=== PATIENT | female | born 1960 | race Caucasian/White ===

== ENCOUNTER 2017-11-17 19:54 | Inpatient (IN) | payer BC, OTHER ==
[~2017-11-17] VITALS: Ht 154.9 cm; Wt 79.8 kg
[~2017-11-17 19:54] MED LIST: NORCO 5-325 TA1 EACH PO; ZOCOR 20 MG TAB20 M1 PO
[2017-11-17 20:22] VITALS: BP 135/75
[2017-11-17 20:24] LABS: ABSOLUTE NEUTROPHILS 6.5 thou/uL (1.4-8.2); BASOPHILS 0.8 % (0.0-2.0); EOSINOPHILS 9.5 % (0.0-3.0); HEMATOCRIT 45.3 % (37.0-47.0); HEMOGLOBIN 15.6 gm/dL (12.0-15.0); LYMPHOCYTES 22.5 % (24.0-44.0); MCHC 34.4 g/dL (28.0-37.0); PLATELET COUNT 242 thou/uL (150-400); POLYS 60.2 % (36.0-66.0); RBC 4.87 mil/uL (4.20-5.00); RDW 12.7 % (10.5-14.5); WBC 10.8 thou/uL (4.0-11.0)
[2017-11-17 20:33] LABS: CALCIUM 9.5 mg/dL (8.5-10.1); CREATININE 1.1 mg/dL (0.6-1.0); POTASSIUM 3.7 mmol/L (3.5-5.1)
[2017-11-17 20:49] LABS: ALBUMIN 4.2 g/dL (3.4-5.0); DIRECT BILIRUBIN 0.1 mg/dL (<0.1-0.3); TOTAL BILIRUBIN 0.4 mg/dL (<0.1-1.0); TOTAL PROTEIN 7.8 g/dL (6.4-8.2)
[2017-11-17 21:17] LABS: URINE BILIRUBIN NEGATIVE (Negative); URINE BLOOD NEGATIVE (Negative); URINE CLARITY CLEAR; URINE COLOR YELLOW; URINE GLUCOSE-RANDOM* NEGATIVE (Negative); URINE KETONES NEGATIVE (Negative); URINE LEUKOCYTES NEGATIVE (Negative); URINE NITRITE NEGATIVE (Negative); URINE PROTEIN (DIPSTICK) NEGATIVE (Negative); URINE UROBILINOGEN 0.2 E.U./dl (0.2-1.0)
[2017-11-17] MEDS ORDERED: PHENERGAN 25 MG25 M1 PO (21:20)
[2017-11-17] MEDS ORDERED: PEPCID40 MG PO (21:20)
[2017-11-17 22:03] VITALS: BP 135/69
[2017-11-17 23:16] VITALS: BP 126/72
[2017-11-18] MEDS ORDERED: XANAX1 MG PO (00:49)
[2017-11-18] MEDS ORDERED: XANAX 0.5 MG0.5 MG PO (00:50)
[2017-11-18] MEDS ORDERED: CYMBALTA30 MG PO (00:51)
[2017-11-18 05:52] VITALS: BP 88/49
[2017-11-18 06:30] LABS: CALCIUM 8.8 mg/dL (8.5-10.1); POTASSIUM 3.9 mmol/L (3.5-5.1)
[2017-11-18 09:50] VITALS: BP 98/47
[2017-11-18] MEDS ORDERED: FLAGYL500 MG PO (10:11)
[2017-11-18] MEDS ORDERED: CIPRO500 MG PO (10:11)
[2017-11-18] MEDS ORDERED: MIRALAX17 GM PO (10:11)
[2017-11-18 10:37] VITALS: BP 98/47
[2017-11-18 13:37] VITALS: BP 98/47
== END 2017-11-18 14:07 | disposition home or self-care (01) | DRG 392 ==
LOC: ER 19:54 → EROBS 21:25 → 4N 21:25
PROVIDERS: Emergency Medicine; Nurse Practitioner Family
DX: K58.9 Irritable bowel syndrome, unspecified (principal); F32.9 Major depressive disorder, single episode, unspecified; F17.210 Nicotine dependence, cigarettes, uncomplicated; K80.50 Calculus of bile duct without cholangitis or cholecystitis without obstruction; K59.00 Constipation, unspecified; F41.8 Other specified anxiety disorders; Z88.8 Allergy status to other drugs, medicaments and biological substances; Z90.710 Acquired absence of both cervix and uterus
CPT/HCPCS: 10790

== ENCOUNTER 2021-04-11 11:46 | Emergency (ER) | payer OTHER ==
[~2021-04-11] VITALS: Ht 157.5 cm; Wt 79.4 kg
[~2021-04-11 11:46] MED LIST changes: +CIPRO500 MG PO; +CYMBALTA30 MG PO; +FLAGYL500 MG PO; +MIRALAX17 GM PO; +PEPCID40 MG PO; +PHENERGAN 25 MG25 M1 PO; +XANAX 0.5 MG0.5 MG PO; +XANAX1 MG PO
[2021-04-11] MEDS ORDERED: LAMOTRIGINE150 MG PO (11:53)
[2021-04-11] MEDS ORDERED: BUSPIRONE HCL15 MG PO (11:53)
[2021-04-11 13:11] LABS: URINE BILIRUBIN NEGATIVE (Negative); URINE BLOOD NEGATIVE (Negative); URINE CLARITY CLEAR; URINE COLOR YELLOW; URINE GLUCOSE-RANDOM* NEGATIVE (Negative); URINE KETONES NEGATIVE (Negative); URINE LEUKOCYTES-REFLEX TRACE (Negative); URINE NITRITE-REFLEX NEGATIVE (Negative); URINE PROTEIN (DIPSTICK) NEGATIVE (Negative); URINE SPECIFIC GRAVITY <= 1.005 (1.005-1.035); URINE UROBILINOGEN 0.2 E.U./dl (0.2-1.0)
[2021-04-11 13:31] LABS: BASOPHILS 1.3 % (0.0-2.0); EOSINOPHILS 8.9 % (0.0-3.0); HEMATOCRIT 43.3 % (37.0-47.0); LYMPHOCYTES 33.2 % (24.0-44.0); MCHC 34.6 g/dL (28.0-37.0); MCV 92.6 fL (80.0-100.0); MONOCYTES 7.7 % (1.0-8.0); PLATELET COUNT 302 thou/uL (150-400); POLYS 48.9 % (36.0-66.0); RBC 4.68 mil/uL (4.20-5.00); RDW 13.6 % (10.5-14.5); WBC 6.1 thou/uL (4.0-11.0)
[2021-04-11 13:47] LABS: CALCIUM 9.2 mg/dL (8.5-10.1); CREATININE 1.2 mg/dL (0.6-1.0); POTASSIUM 4.3 mmol/L (3.5-5.1)
[2021-04-11 13:57] LABS: ALBUMIN 3.7 g/dL (3.4-5.0); TOTAL BILIRUBIN 0.4 mg/dL (0.2-1.0); TOTAL PROTEIN 8.1 g/dL (6.4-8.2)
[2021-04-11 14:25] VITALS: BP 135/76
--- NOTE | 2021-04-12 08:02 | EKG ---
[address] [place] [address] [place] [address] ELECTROCARDIOGRAM REPORT Name: VIVIENNEANJALI J Room #: [id number] Admission: 04/11/21 Attend Phys: Discharge: Date of : 64 Report #: [id number] [facility] ED Test Date: 2021-04-11 Test Time: 13:03:39 Pat Name: ANJALI PALAFOX Department: Room: Gender: F Occupational Therapy Manager: JENNIFER : 1960 Requested By: Fady Garcia Order Number: [id number] MD: Lauri Oliva Measurements Intervals [place] Rate: 64 P: 57 [place]: 162 QRS: 163 QRSD: 98 T: 39 QT: 435 QTc: 449 Interpretive Statements Sinus rhythm Low voltage, extremity leads Abnormal R-wave progression, late transition Compared to ECG 02/21/1997 09:01:00 No significant changes found Electronically Signed On 04-12-2021 8:02:06 CDT by Lauri Oliva [email or web address] <ELECTRONICALLY SIGNED> By: Lauri Oliva MD, [facility] 04/12/21 0802 [id number] 1303 Lauri Oliva MD, FACC /EPI
== END 2021-04-11 14:25 ==
LOC: ER 11:46
PROVIDERS: Emergency Medicine
DX: R07.89 Other chest pain (principal); R06.02 Shortness of breath; Z88.5 Allergy status to narcotic agent; Z90.710 Acquired absence of both cervix and uterus; Z86.73 Personal history of transient ischemic attack (TIA), and cerebral infarction without residual deficits; Z98.890 Other specified postprocedural states